=== PATIENT | female | born 1945 | race Caucasian/White ===

== ENCOUNTER 2021-04-13 09:46 | Outpatient (CLI) | payer MEDICARE | END 2021-04-13 09:47 | disposition home or self-care (01) | LOC: CSHMAMMO 09:46 | PROVIDERS: ATTEND Family Medicine | DX: Z12.31 Encounter for screening mammogram for malignant neoplasm of breast (principal) | CPT/HCPCS: 77063; 77067 ==

== ENCOUNTER 2023-04-25 09:20 | Outpatient (CLI) | payer MEDICARE | END 2023-04-25 09:21 | disposition home or self-care (01) | LOC: CSHMAMMO 09:20 | PROVIDERS: ATTEND Family Medicine | DX: Z12.31 Encounter for screening mammogram for malignant neoplasm of breast (principal) | CPT/HCPCS: 77063; 77067; 77080 ==

== ENCOUNTER 2025-01-14 08:59 | Emergency (ER) | payer MEDICARE ==
[2025-01-14 09:41] LABS: #Basophils Less than 0.03 10x3/uL (0.0-0.2); #Eosinophils 0.04 10x3/uL (0.0-0.5); #Monocytes 0.25 10x3/uL (0.0-1.1); #Neutrophils 2.84 10x3/uL (1.5-8.4); %Basophils 0.5 % (0.0-2.0); %Eosinophils 1.0 % (0.0-6.0); %Lymphocytes 24.4 % (18.0-47.0); %Monocytes 6.0 % (0.0-10.0); %Neutrophils 67.9 % (40.0-75.0); Hematocrit 44.7 % (34.9-44.5); Hemoglobin 14.8 g/dL (12.0-15.5); Mean Corpuscular Hemoglobin 30.6 pg (27.0-33.0); Mean Corpuscular Volume 92.5 fL (81.6-98.3); Platelet Count 199 10x3/uL (150-450); Red Blood Cell (RBC) Count 4.83 10x6/uL (3.90-5.03); White Blood Cell (WBC) Count 4.18 10x3/uL (3.5-10.5)
[2025-01-14 09:55] LABS: D-Dimer Test 0.89 mcg/mL (0.19-0.50); INR-International Normal Ratio 1.0; PTT 26.1 sec (22.0-33.0); Prothrombin Time 10.6 sec (9.5-12.1)
[2025-01-14 09:57] LABS: ALT (SGPT) 12 U/L (Less than 34); AST (SGOT) 19 U/L (11-34); Albumin 4.2 g/dL (3.1-4.5); Alkaline Phosphatase 76 U/L (40-110); Anion Gap 14 mmol/L (10-20); BUN (Urea Nitrogen) 15 mg/dL (9.8-20.1); Bilirubin, Total 2.0 mg/dL (0.3-1.2); Calc. Creatinine Clearance 0 mL/min (70-130); Calcium 9.5 mg/dL (7.8-10.44); Carbon Dioxide 26 mmol/L (23-31); Chloride 108 mmol/L (98-107); Globulin 3.8 g/dL (2.4-3.5); Glucose 123 mg/dL (83-110); Magnesium 2.1 mg/dL (1.6-2.6); Potassium 3.9 mmol/L (3.5-5.1); Sodium 144 mmol/L (136-145)
[2025-01-14 10:02] LABS: Troponin I Less than 0.010 ng/mL (< 0.028)
[2025-01-14 11:21] LABS: Glucose, Urine (Dipstick) Negative (Negative); Leukocyte Negative (Negative); Protein, Urine (Dipstick) Negative (Neg-Trace); Specific Gravity, Urine 1.010 (1.005-1.030)
[2025-01-14 11:55] LABS: Bacteria/HPF None Seen HPF (None Seen); CAUTI Indications for Culture Pelvic or flank pain; RBC/HPF 0-3 HPF (0-3); WBC/HPF 0-3 HPF (0-3)
[2025-01-14 11:56] LABS: Urine Culture Reflex No No
[2025-01-14] MEDS ORDERED: Iopamidol 370 76% 100 ML VIAL ONE (13:38)
== END 2025-01-14 12:54 | disposition home or self-care (01) ==
LOC: CSHERS 08:59
DX: I47.10 Supraventricular tachycardia, unspecified (principal); I10 Essential (primary) hypertension
CPT/HCPCS: 71045; 71275; 80053; 81001; 83735; 84484; 85025; 85379; 85610; 85730; 93005; 94760; 99285; Q9967